=== PATIENT | male | born 1960 | race Caucasian/White ===

== ENCOUNTER 2021-11-24 09:47 | Emergency (ER) | payer MEDICAID ==
[2021-11-24] MEDS ORDERED: Ketorolac 60 MG/2 ML SDV IM ONE (12:55)
[2021-11-24] MEDS ORDERED: Orphenadrine 100 MG Tab.ER PO STA (12:55)
== END 2021-11-24 15:44 | disposition home or self-care (01) ==
LOC: JD.ED 09:47
DX: M62.830 Muscle spasm of back (principal); Z86.16 Personal history of COVID-19
CPT/HCPCS: 72128; 72131; 96372; 99283; A9270; J1885